=== PATIENT | male | born 1990 | race Caucasian/White ===

== ENCOUNTER 2017-05-18 08:23 | Emergency (ER) | payer MEDICAID ==
[~2017-05-18] VITALS: Ht 177.8 cm; Wt 60.0 kg
[2017-05-18 08:27] VITALS: BP 139/92; PULSE 97; RESP 16; TEMP 98.6; O2SAT 100
[2017-05-18] MEDS ORDERED: IBUP800T23 PO (08:43)
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
[2017-05-18] MEDS ORDERED: IBUPROFEN 800 MG TAB PO ONE (08:45)
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
== END 2017-05-18 09:49 | disposition home or self-care (01) ==
LOC: NEPK 08:23
DX: S69.92XA Unspecified injury of left wrist, hand and finger(s), initial encounter (principal); Z88.5 Allergy status to narcotic agent; W23.0XXA Caught, crushed, jammed, or pinched between moving objects, initial encounter
CPT/HCPCS: 73110; 73130; 99283